=== PATIENT | male | born 1995 | race Caucasian/White ===

== ENCOUNTER 2016-11-23 17:05 | Emergency (ER) | payer OTHER ==
[~2016-11-23] VITALS: Ht 177.8 cm; Wt 226.4 kg
[~2016-11-23 17:05] MED LIST: FLEXERIL10 MG PO; LISINOPRIL10 MG PO; MOTRIN800 MG PO; PHENTERMINE HCL15 MG PO
[2016-11-23 17:50] LABS: EOSINOPHIL (%) 2.5 % (0-5); EOSINOPHIL COUNT 0.3 K/uL (0-0.3); HEMATOCRIT 44.1 % (38.0-50.0); IMMATURE GRANULOCYTE (%) 0.3 % (0.0-0.7); IMMATURE GRANULOCYTE COUNT 0.4 K/uL; LYMPHOCYTE COUNT 2.5 K/uL (1.0-2.8); MCH 27.1 PG (29.0-34.0); MCHC 33.1 G/DL (30.0-36.0); MEAN PLAT.VOLUME 11.1 uM^3 (9.0-12.4); MONOCYTE (%) 6.4 % (3-12); MONOCYTE COUNT 0.8 K/uL (0-0.8); NEUTROPHIL (%) 70.1 % (45-76); NEUTROPHIL COUNT 8.7 K/uL (1.8-6.4); PLATELET COUNT 208 K/uL (156-360); RBC DIS.WIDTH-CV 15.3 % (11.8-14.6); RBC DIS.WIDTH-SD 45.6 % (39-53); RED BLOOD COUNT 5.38 M/uL (4.00-5.50); WHITE BLOOD COUNT 12.4 K/uL (4.1-10.2)
[2016-11-23 17:59] LABS: CHLORIDE 102 mEq/L (99-109); POTASSIUM 5.5 mEq/L (3.7-5.4); SODIUM 140 mEq/L (136-147)
[2016-11-23 18:01] LABS: GLUCOSE 93 mg/dL (70-99)
[2016-11-23 18:02] LABS: ANION GAP 13 MEQ/L (2-14)
[2016-11-23 18:03] LABS: TOTAL BILIRUBIN 0.7 mg/dL (0.0-1.0)
[2016-11-23 18:05] LABS: ALKALINE PHOSPHATASE 60 IU/L (3-129); GFR ESTIMATE (CALCULATED) > 59 mL/min/
[2016-11-23 18:06] LABS: UREA NITROGEN (BUN) 12 mg/dL (9-23)
[2016-11-23 18:08] LABS: LIPASE 17 U/L (1.0-51.0)
[2016-11-23] MEDS ORDERED: ZOFRAN ODT4 MG PO (18:56)
[2016-11-23] MEDS ORDERED: NORCO 7.5/321 TABLET PO (18:56)
[2016-11-23] MEDS ORDERED: FLAGYL500 MG PO (18:56)
[2016-11-23] MEDS ORDERED: CIPRO500 MG PO (18:56)
[2016-11-23 19:57] VITALS: BP 180/130
== END 2016-11-23 20:00 | disposition home or self-care (01) ==
LOC: EME 17:05
PROVIDERS: Physician Assistant
DX: K57.32 Diverticulitis of large intestine without perforation or abscess without bleeding (principal); E66.01 Morbid (severe) obesity due to excess calories; Z68.45 Body mass index [BMI] 70 or greater, adult; R19.7 Diarrhea, unspecified; R16.0 Hepatomegaly, not elsewhere classified; I10 Essential (primary) hypertension
CPT/HCPCS: 74177; 80053; 81003; 83690; 85025; 87493; 87506; 99281; 99285; J1885; J7030

== ENCOUNTER 2017-05-22 14:30 | Inpatient (IN) | payer OTHER ==
[~2017-05-22] VITALS: Ht 177.8 cm; Wt 222.0 kg
[~2017-05-22 14:30] MED LIST changes: +CIPRO500 MG PO; +FLAGYL500 MG PO; +NORCO 7.5/321 TABLET PO; +ZOFRAN ODT4 MG PO
[2017-05-22 16:27] LABS: EOSINOPHIL (%) 0.7 % (0-5); EOSINOPHIL COUNT 0.1 K/uL (0-0.3); IMMATURE GRANULOCYTE COUNT 0.2 K/uL; INSTRUMENT ABS NEUTROPHIL CT 11.6 K/uL; MCH 25.7 PG (29.0-34.0); MCHC 30.2 G/DL (30.0-36.0); MEAN PLAT.VOLUME 10.3 uM^3 (9.0-12.4); MONOCYTE (%) 5.3 % (3-12); MONOCYTE COUNT 0.8 K/uL (0-0.8); NEUTROPHIL (%) 79.2 % (45-76); NEUTROPHIL COUNT 11.6 K/uL (1.8-6.4); NRBC (%) 0.7 /100 WBC (0-0); PLATELET COUNT 201 K/uL (156-360); RBC DIS.WIDTH-CV 17.7 % (11.8-14.6); RBC DIS.WIDTH-SD 50.8 % (39-53); RED BLOOD COUNT 5.65 M/uL (4.00-5.50); WHITE BLOOD COUNT 14.7 K/uL (4.1-10.2)
[2017-05-22 16:41] LABS: CHLORIDE 95 mEq/L (99-109); POTASSIUM 4.2 mEq/L (3.7-5.4)
[2017-05-22 16:42] LABS: SODIUM 143 mEq/L (136-147)
[2017-05-22 16:43] LABS: GLUCOSE 105 mg/dL (70-99)
[2017-05-22 16:45] LABS: ANION GAP 11 MEQ/L (2-14)
[2017-05-22 16:47] LABS: GFR ESTIMATE (CALCULATED) > 59 mL/min/
[2017-05-22 16:48] LABS: UREA NITROGEN (BUN) 13 mg/dL (9-23)
[2017-05-22 16:51] LABS: TROP-I INTERPRETATION NEGATIVE; TROPONIN-I 0.01 ng/mL (0.0-0.30)
[2017-05-22 19:07] LABS: D-DIMER ELISA < 150.00 ng/mLDDU (<230)
[2017-05-22] MEDS ORDERED: LOSARTAN POTAS100 MG PO (20:45)
[2017-05-22] MEDS ORDERED: ATORVASTATIN CA20 MG PO (20:45)
[2017-05-22] MEDS ORDERED: ONE DAILY FOR1 EACH PO (20:46)
[2017-05-22] MEDS ORDERED: ADVIL200 M1 PO (20:47)
[2017-05-22] MEDS ORDERED: VENTOLIN HFA18 GM IH (20:48)
[2017-05-22 21:06] LABS: INTER. NORMALIZED RATIO 1.1; PROTHROMBIN TIME 12.3 SEC (10.2-12.9)
[2017-05-22 21:08] LABS: PTT 35.6 SEC (25-37)
[2017-05-23] VITALS (12 sets, daily range): BP systolic 110–163; BP diastolic 63–111
[2017-05-23 03:59] LABS: POINT-OF-CARE METER ID UU14162513
[2017-05-23 05:32] LABS: HEMATOCRIT 50.7 % (38.0-50.0); MCH 25.8 PG (29.0-34.0); MCHC 29.4 G/DL (30.0-36.0); MCV 87.7 FL (86-99); MEAN PLAT.VOLUME 10.7 uM^3 (9.0-12.4); NRBC (%) 0.6 /100 WBC (0-0); PLATELET COUNT 206 K/uL (156-360); RBC DIS.WIDTH-CV 18.6 % (11.8-14.6); RBC DIS.WIDTH-SD 54.4 % (39-53); RED BLOOD COUNT 5.78 M/uL (4.00-5.50); WHITE BLOOD COUNT 14.5 K/uL (4.1-10.2)
[2017-05-23 05:58] LABS: CHLORIDE 94 MEQ/L (99-109); GFR ESTIMATE (CALCULATED) > 59 mL/min/; GLUCOSE 144 mg/dL (70-99); POTASSIUM 4.6 MEQ/L (3.7-5.4); SODIUM 143 MEQ/L (136-147); UREA NITROGEN (BUN) 14 mg/dL (9-23)
[2017-05-23 06:01] LABS: INTER. NORMALIZED RATIO 1.1; PROTHROMBIN TIME 12.6 SEC (10.2-12.9)
[2017-05-23 06:04] LABS: PTT 37.8 SEC (25-37)
[2017-05-23 06:06] LABS: ALKALINE PHOSPHATASE 55 IU/L (3-129); ANION GAP ND MEQ/L (2-14); SAMPLE HEMOLYSIS CHECK 0; SAMPLE ICTERIC CHECK 0; SAMPLE LIPEMIA CHECK 0; TOTAL BILIRUBIN 1.5 MG/DL (0.0-1.0)
[2017-05-23 06:13] LABS: BASE EXCESS 10.8 mEq/L (-3 to +3); BICARBONATE 44.7 mEq/L (22-26); CARBOXY HGB 3.2 % (0-5); DEVICE VM; FI02 50 %; METHEMOGLOBIN 1.4 % (0-1.5); PCO2 117 mm Hg (35-45); PO2 68 mm Hg (80-100); TOTAL RESP RATE 20 resp/min; pH 7.19 (7.35-7.45)
[2017-05-23 06:14] LABS: SITE LR
[2017-05-23 07:36] LABS: BASE EXCESS 11.6 mEq/L (-3 to +3); BICARBONATE 44.4 mEq/L (22-26); CARBOXY HGB 3.3 % (0-5); METHEMOGLOBIN 1.5 % (0-1.5); PO2 66 mm Hg (80-100)
[2017-05-23 07:37] LABS: PCO2 106 mm Hg (35-45); SITE LR
[2017-05-23 07:38] LABS: COMMENTS - BLOOD GASES A+C+; DEVICE VM; FI02 50 %; O2 FLOW 12 L/MIN; TOTAL RESP RATE 22 resp/min; pH 7.23 (7.35-7.45)
[2017-05-23 08:47] LABS: METH RESISTANT S AUREUS PCR NEGATIVE (NEGATIVE); PROBE CHECK PASS; SPECIMEN PROCESSING CONTROL PASS
[2017-05-23 13:44] LABS: BASE EXCESS 13.9 mEq/L (-3 to +3); BICARBONATE 47.3 mEq/L (22-26); CARBOXY HGB 3.2 % (0-5); COMMENTS - BLOOD GASES A+C+; DEVICE PB 980 NIPPV; FI02 100 %; METHEMOGLOBIN 1.5 % (0-1.5); PCO2 113 mm Hg (35-45); PO2 70 mm Hg (80-100); SITE LR
[2017-05-23 13:45] LABS: MODE SPONT; PEEP 8 CM/H20; PRES. SUPPORT 14 CM/H2O; TOTAL RESP RATE 29 resp/min; pH 7.23 (7.35-7.45)
[2017-05-23 20:56] LABS: BASE EXCESS 14.9 mEq/L (-3 to +3); BICARBONATE 47.3 mEq/L (22-26); CARBOXY HGB 2.9 % (0-5); METHEMOGLOBIN 1.7 % (0-1.5); PCO2 103 mm Hg (35-45); PO2 74 mm Hg (80-100); pH 7.27 (7.35-7.45)
[2017-05-23 20:57] LABS: COMMENTS - BLOOD GASES A+C+; DEVICE 980VENT; FI02 100 %; MODE SPONT; PRES. SUPPORT 14 CM/H2O; SITE RR; TOTAL RESP RATE 21 resp/min
[2017-05-24] VITALS (14 sets, daily range): BP systolic 99–168; BP diastolic 71–107
[2017-05-24 06:00] LABS: BASE EXCESS 22.2 mEq/L (-3 to +3); BICARBONATE 55.8 mEq/L (22-26); CARBOXY HGB 3.8 % (0-5); COMMENTS - BLOOD GASES C+; DEVICE MASK VENT; FI02 80 %; METHEMOGLOBIN 1.2 % (0-1.5); MODE SPONT; PCO2 116 mm Hg (35-45); PO2 70 mm Hg (80-100); SITE RR; pH 7.29 (7.35-7.45)
[2017-05-24 06:01] LABS: PEEP 8 CM/H20; PRES. SUPPORT 14 CM/H2O; TOTAL RESP RATE 24 resp/min
[2017-05-24 13:43] LABS: EOSINOPHIL (%) 0.2 % (0-5); HEMATOCRIT 48.1 % (38.0-50.0); IMMATURE GRANULOCYTE (%) 0.5 % (0.0-0.7); IMMATURE GRANULOCYTE COUNT 0.1 K/uL; INSTRUMENT ABS NEUTROPHIL CT 11.4 K/uL; LYMPHOCYTE COUNT 1.4 K/uL (1.0-2.8); MCH 25.4 PG (29.0-34.0); MCHC 29.5 G/DL (30.0-36.0); MCV 85.9 FL (86-99); MONOCYTE (%) 6.2 % (3-12); MONOCYTE COUNT 0.9 K/uL (0-0.8); NEUTROPHIL COUNT 11.4 K/uL (1.8-6.4); PLATELET COUNT 208 K/uL (156-360); RBC DIS.WIDTH-CV 17.8 % (11.8-14.6); WHITE BLOOD COUNT 13.8 K/uL (4.1-10.2)
[2017-05-24 14:05] LABS: ANION GAP ND MEQ/L (2-14); CHLORIDE 85 MEQ/L (99-109); GFR ESTIMATE (CALCULATED) > 59 mL/min/; GLUCOSE 115 mg/dL (70-99); MAGNESIUM 2.3 mg/dl (1.3-2.7); POTASSIUM 4.2 MEQ/L (3.7-5.4); SAMPLE HEMOLYSIS CHECK 0; SAMPLE ICTERIC CHECK 0; SAMPLE LIPEMIA CHECK 0; SODIUM 139 MEQ/L (136-147); UREA NITROGEN (BUN) 14 mg/dL (9-23)
[2017-05-24 14:09] LABS: CARBON DIOXIDE (BICARBONATE) > 40.0 MEQ/L (20-31)
[2017-05-24 14:54] LABS: BASE EXCESS 25.8 mEq/L (-3 to +3); BICARBONATE 54.6 mEq/L (22-26); CARBOXY HGB 3.1 % (0-5); METHEMOGLOBIN 1.5 % (0-1.5); PCO2 70 mm Hg (35-45); PO2 75 mm Hg (80-100)
[2017-05-24 14:55] LABS: COMMENTS - BLOOD GASES A+C+; DEVICE NIV; FI02 40 %; MODE SPONT; PEEP 8 CM/H20; PRES. SUPPORT 14 CM/H2O; SITE LR; TOTAL RESP RATE 24 resp/min
[2017-05-25] VITALS (13 sets, daily range): BP systolic 107–139; BP diastolic 68–97
[2017-05-25 05:21] LABS: EOSINOPHIL (%) 0 % (0-5); HEMATOCRIT 48.7 % (38.0-50.0); IMMATURE GRANULOCYTE (%) 0.6 % (0.0-0.7); IMMATURE GRANULOCYTE COUNT 0.1 K/uL; INSTRUMENT ABS NEUTROPHIL CT 12.2 K/uL; LYMPHOCYTE COUNT 0.9 K/uL (1.0-2.8); MCHC 30.8 G/DL (30.0-36.0); MCV 84.5 FL (86-99); MEAN PLAT.VOLUME 10.4 uM^3 (9.0-12.4); MONOCYTE (%) 1.9 % (3-12); MONOCYTE COUNT 0.3 K/uL (0-0.8); NEUTROPHIL (%) 90.9 % (45-76); NEUTROPHIL COUNT 12.2 K/uL (1.8-6.4); PLATELET COUNT 231 K/uL (156-360); RBC DIS.WIDTH-CV 17.9 % (11.8-14.6); RBC DIS.WIDTH-SD 50.6 % (39-53); RED BLOOD COUNT 5.76 M/uL (4.00-5.50); WHITE BLOOD COUNT 13.4 K/uL (4.1-10.2)
[2017-05-25 05:40] LABS: CHLORIDE 84 MEQ/L (99-109); GFR ESTIMATE (CALCULATED) > 59 mL/min/; GLUCOSE 161 mg/dL (70-99); POTASSIUM 4.4 MEQ/L (3.7-5.4); SODIUM 139 MEQ/L (136-147); UREA NITROGEN (BUN) 15 mg/dL (9-23)
[2017-05-25 05:49] LABS: MAGNESIUM 2.5 mg/dl (1.3-2.7); SAMPLE HEMOLYSIS CHECK 0; SAMPLE ICTERIC CHECK 0; SAMPLE LIPEMIA CHECK 0
[2017-05-25 05:51] LABS: ANION GAP ND MEQ/L (2-14)
[2017-05-25 06:01] LABS: CARBON DIOXIDE (BICARBONATE) > 40.0 MEQ/L (20-31)
[2017-05-25 08:08] LABS: INTERNAL CONTROL VALID? YES
[2017-05-26] VITALS (8 sets, daily range): BP systolic 90–128; BP diastolic 57–96
[2017-05-26 05:36] LABS: EOSINOPHIL COUNT 0.1 K/uL (0-0.3); HEMATOCRIT 51.5 % (38.0-50.0); IMMATURE GRANULOCYTE (%) 0.4 % (0.0-0.7); IMMATURE GRANULOCYTE COUNT 0.1 K/uL; INSTRUMENT ABS NEUTROPHIL CT 9.8 K/uL; LYMPHOCYTE COUNT 2.4 K/uL (1.0-2.8); MCH 26.1 PG (29.0-34.0); MCHC 31.1 G/DL (30.0-36.0); MEAN PLAT.VOLUME 10.4 uM^3 (9.0-12.4); MONOCYTE (%) 8.1 % (3-12); MONOCYTE COUNT 1.1 K/uL (0-0.8); NEUTROPHIL (%) 72.4 % (45-76); NEUTROPHIL COUNT 9.8 K/uL (1.8-6.4); PLATELET COUNT 234 K/uL (156-360); RBC DIS.WIDTH-CV 18.6 % (11.8-14.6); RBC DIS.WIDTH-SD 51.9 % (39-53); RED BLOOD COUNT 6.13 M/uL (4.00-5.50); WHITE BLOOD COUNT 13.5 K/uL (4.1-10.2)
[2017-05-26 06:21] LABS: ANION GAP ND MEQ/L (2-14); CHLORIDE 82 MEQ/L (99-109); GFR ESTIMATE (CALCULATED) > 59 mL/min/; GLUCOSE 149 mg/dL (70-99); MAGNESIUM 2.4 mg/dl (1.3-2.7); SAMPLE HEMOLYSIS CHECK 0; SAMPLE ICTERIC CHECK 0; SAMPLE LIPEMIA CHECK 0; SODIUM 137 MEQ/L (136-147)
[2017-05-26 06:54] LABS: CARBON DIOXIDE (BICARBONATE) > 40.0 MEQ/L (20-31); POTASSIUM 3.4 MEQ/L (3.7-5.4); UREA NITROGEN (BUN) 29 mg/dL (9-23)
[2017-05-27] VITALS: BP 121/84
[2017-05-27 02:00] VITALS: BP 0/0; BP 104/82
[2017-05-27 04:00] VITALS: BP 104/82
[2017-05-27 06:01] LABS: EOSINOPHIL (%) 0.5 % (0-5); EOSINOPHIL COUNT 0.1 K/uL (0-0.3); HEMATOCRIT 50.1 % (38.0-50.0); IMMATURE GRANULOCYTE (%) 0.4 % (0.0-0.7); IMMATURE GRANULOCYTE COUNT 0.1 K/uL; INSTRUMENT ABS NEUTROPHIL CT 9.4 K/uL; LYMPHOCYTE COUNT 2.6 K/uL (1.0-2.8); MCH 25.9 PG (29.0-34.0); MCHC 30.9 G/DL (30.0-36.0); MCV 83.8 FL (86-99); MEAN PLAT.VOLUME 10.6 uM^3 (9.0-12.4); MONOCYTE (%) 7.2 % (3-12); NEUTROPHIL (%) 71.8 % (45-76); NEUTROPHIL COUNT 9.4 K/uL (1.8-6.4); PLATELET COUNT 249 K/uL (156-360); RBC DIS.WIDTH-CV 18.5 % (11.8-14.6); RBC DIS.WIDTH-SD 52.1 % (39-53); RED BLOOD COUNT 5.98 M/uL (4.00-5.50); WHITE BLOOD COUNT 13.1 K/uL (4.1-10.2)
[2017-05-27 06:47] LABS: ANION GAP 13 MEQ/L (2-14); CHLORIDE 87 MEQ/L (99-109); GFR ESTIMATE (CALCULATED) > 59 mL/min/; GLUCOSE 141 mg/dL (70-99); MAGNESIUM 2.8 mg/dl (1.3-2.7); POTASSIUM 4.2 MEQ/L (3.7-5.4); SAMPLE HEMOLYSIS CHECK 0; SAMPLE ICTERIC CHECK 0; SAMPLE LIPEMIA CHECK 0; SODIUM 139 MEQ/L (136-147); UREA NITROGEN (BUN) 35 mg/dL (9-23)
[2017-05-27 20:00] VITALS: BP 106/78
[2017-05-28] VITALS (7 sets, daily range): BP systolic 102–127; BP diastolic 51–97
[2017-05-28 05:21] LABS: EOSINOPHIL (%) 0.7 % (0-5); EOSINOPHIL COUNT 0.1 K/uL (0-0.3); HEMATOCRIT 53.1 % (38.0-50.0); IMMATURE GRANULOCYTE (%) 0.5 % (0.0-0.7); IMMATURE GRANULOCYTE COUNT 0.1 K/uL; LYMPHOCYTE COUNT 2.5 K/uL (1.0-2.8); MCH 25.9 PG (29.0-34.0); MCHC 30.3 G/DL (30.0-36.0); MCV 85.5 FL (86-99); MONOCYTE (%) 7.3 % (3-12); MONOCYTE COUNT 1.1 K/uL (0-0.8); NEUTROPHIL (%) 74.5 % (45-76); PLATELET COUNT 270 K/uL (156-360); RBC DIS.WIDTH-CV 18.6 % (11.8-14.6); RBC DIS.WIDTH-SD 53.2 % (39-53); RED BLOOD COUNT 6.21 M/uL (4.00-5.50); WHITE BLOOD COUNT 14.7 K/uL (4.1-10.2)
[2017-05-28 05:46] LABS: ANION GAP 12 MEQ/L (2-14); CHLORIDE 88 MEQ/L (99-109); GFR ESTIMATE (CALCULATED) > 59 mL/min/; GLUCOSE 136 mg/dL (70-99); POTASSIUM 4.9 MEQ/L (3.7-5.4); SAMPLE HEMOLYSIS CHECK 0; SAMPLE ICTERIC CHECK 0; SAMPLE LIPEMIA CHECK 0; SODIUM 140 MEQ/L (136-147); UREA NITROGEN (BUN) 32 mg/dL (9-23)
[2017-05-28 11:07] LABS: LACTATE DEHYDROGENASE 296 IU/L (20-246); URIC ACID 10.3 mg/dL (3.1-9.2)
[2017-05-28 11:35] LABS: CREATINE KINASE 59 IU/L (1-294)
[2017-05-28 12:28] LABS: INTACT PARATHYROID HORMONE 112 pg/mL (10-69)
[2017-05-29 05:10] LABS: EOSINOPHIL COUNT 0.1 K/uL (0-0.3); HEMATOCRIT 47.3 % (38.0-50.0); IMMATURE GRANULOCYTE (%) 0.3 % (0.0-0.7); INSTRUMENT ABS NEUTROPHIL CT 9.5 K/uL; MCHC 30.4 G/DL (30.0-36.0); MCV 85.4 FL (86-99); MONOCYTE (%) 6.9 % (3-12); MONOCYTE COUNT 0.9 K/uL (0-0.8); NEUTROPHIL (%) 69.4 % (45-76); NEUTROPHIL COUNT 9.5 K/uL (1.8-6.4); PLATELET COUNT 213 K/uL (156-360); RBC DIS.WIDTH-CV 17.9 % (11.8-14.6); RBC DIS.WIDTH-SD 53.3 % (39-53); RED BLOOD COUNT 5.54 M/uL (4.00-5.50); WHITE BLOOD COUNT 13.7 K/uL (4.1-10.2)
[2017-05-29 05:36] LABS: ANION GAP 10 MEQ/L (2-14); CHLORIDE 91 MEQ/L (99-109); GFR ESTIMATE (CALCULATED) > 59 mL/min/; GLUCOSE 113 mg/dL (70-99); MAGNESIUM 2.9 mg/dl (1.3-2.7); SAMPLE HEMOLYSIS CHECK 0; SAMPLE ICTERIC CHECK 0; SAMPLE LIPEMIA CHECK 0; SODIUM 138 MEQ/L (136-147); UREA NITROGEN (BUN) 25 mg/dL (9-23)
[2017-05-29 05:43] VITALS: BP 129/78
[2017-05-29 08:11] VITALS: BP 136/95
[2017-05-29] MEDS ORDERED: RENVELA800 MG PO (09:33)
[2017-05-29] MEDS ORDERED: LEVOFLOXACIN750 MG PO (09:33)
[2017-05-29] MEDS ORDERED: PREDNISONE10 MG PO (09:33)
[2017-05-29 10:44] VITALS: BP 123/76
[2017-05-29] MEDS ORDERED: VITAMIN D31000 UNI2 PO (16:04)
== END 2017-05-29 16:26 | disposition home health service (06) | DRG 189 ==
LOC: EME 14:30 → EDOF 20:56 → ENRESERV 21:00 → 5WEST 23:33 → 4WEST 05-23 06:27 → ENRESERV 05-23 06:28 → 4WEST 05-23 06:41 → ENRESERV 05-28 08:09 → 4EAST 05-28 09:57
PROVIDERS: Emergency Medicine; Internal Medicine; Internal Medicine Nephrology; Nurse Practitioner Adult Health; Specialist
DX: J96.22 Acute and chronic respiratory failure with hypercapnia (principal); J18.9 Pneumonia, unspecified organism; E87.2 Acidosis; E86.0 Dehydration; E66.2 Morbid (severe) obesity with alveolar hypoventilation; Z99.81 Dependence on supplemental oxygen; J96.21 Acute and chronic respiratory failure with hypoxia; G47.33 Obstructive sleep apnea (adult) (pediatric); Z68.45 Body mass index [BMI] 70 or greater, adult; E11.9 Type 2 diabetes mellitus without complications; E83.41 Hypermagnesemia; E83.39 Other disorders of phosphorus metabolism; E87.6 Hypokalemia; I10 Essential (primary) hypertension; T50.1X5A Adverse effect of loop [high-ceiling] diuretics, initial encounter; E55.9 Vitamin D deficiency, unspecified; E78.5 Hyperlipidemia, unspecified; R00.0 Tachycardia, unspecified; R07.89 Other chest pain
CPT/HCPCS: 36600; 71010; 71020; 78582; 80048; 80053; 82306; 82550; 82570; 82803; 82948; 83615; 83630; 83735; 83970; 84100; 84105; 84133; 84300; 84484; 84550; 85025; 85027; 85379; 85610; 85730; 87449; 87493; 87641; 93005; 93306; 93970; 94002; 94003; 94640; 94640 76; 94660; 94760; 94799; 99202; 99281; 99285; A9539; A9540; G0378; J1644; J1940; J1956; J2920; J2930; J7030; J7070; J7512

== ENCOUNTER → 2017-11-19 | Outpatient (CLI) | payer OTHER ==
[~2017-11-19] MED LIST changes: +ADVIL200 M1 PO; +ATORVASTATIN CA20 MG PO; +LEVOFLOXACIN750 MG PO; +LOSARTAN POTAS100 MG PO; +ONE DAILY FOR1 EACH PO; +PREDNISONE10 MG PO; +RENVELA800 MG PO; +VENTOLIN HFA18 GM IH; +VITAMIN D31000 UNI2 PO
== END | disposition home or self-care (01) ==
LOC: EKG 13:46
DX: I51.7 Cardiomegaly (principal)
CPT/HCPCS: 93306

== ENCOUNTER 2017-12-26 16:24 | Emergency (ER) | payer OTHER ==
[~2017-12-26] VITALS: Ht 177.8 cm; Wt 226.7 kg
[2017-12-26 16:51] LABS: HEMATOCRIT 46.7 % (38.0-50.0); HEMOGLOBIN 14.7 G/DL (12.5-16.6); MCH 26.3 PG (29.0-34.0); MCHC 31.5 G/DL (30.0-36.0); MCV 83.7 FL (86-99); PLATELET COUNT 207 K/uL (156-360); RBC DIS.WIDTH-CV 15.5 % (11.8-14.6); RBC DIS.WIDTH-SD 46.4 % (39-53); RED BLOOD COUNT 5.58 M/uL (4.00-5.50); WHITE BLOOD COUNT 10.7 K/uL (4.1-10.2)
[2017-12-26 17:02] LABS: CHLORIDE 100 mEq/L (99-109); POTASSIUM 4.1 mEq/L (3.7-5.4); SODIUM 142 mEq/L (136-147)
[2017-12-26 17:04] LABS: GLUCOSE 155 mg/dL (70-99)
[2017-12-26 17:08] LABS: CREATININE 0.9 mg/dL (0.6-1.3); GFR ESTIMATE (CALCULATED) > 59 mL/min/ (58.99-99999)
[2017-12-26 17:09] LABS: UREA NITROGEN (BUN) 13 mg/dL (9-23)
[2017-12-26 19:43] VITALS: BP 109/87
== END 2017-12-26 19:44 | disposition home or self-care (01) ==
LOC: EME 16:24
DX: K92.2 Gastrointestinal hemorrhage, unspecified (principal); K57.92 Diverticulitis of intestine, part unspecified, without perforation or abscess without bleeding; E66.01 Morbid (severe) obesity due to excess calories; Z68.45 Body mass index [BMI] 70 or greater, adult; E11.9 Type 2 diabetes mellitus without complications; I10 Essential (primary) hypertension
CPT/HCPCS: 80048; 85027

== ENCOUNTER → 2018-01-12 | Outpatient (CLI) | payer OTHER ==
[~2018-01-12] VITALS: Ht 175.3 cm; Wt 229.5 kg
[~2018-01-12] MED LIST changes: +EXFORGE 5/321 TABLET PO; +SYNJARDY 5-5001 EACH PO
== END | disposition home or self-care (01) ==
LOC: AMB 08:00
PROVIDERS: Internal Medicine Gastroenterology
PROC: 0DB78ZX Excision of Stomach, Pylorus, Via Natural or Artificial Opening Endoscopic, Diagnostic (ICD-10-PCS; principal; 2018-01-12)
DX: Z01.818 Encounter for other preprocedural examination (principal); K21.9 Gastro-esophageal reflux disease without esophagitis; E66.01 Morbid (severe) obesity due to excess calories; E78.5 Hyperlipidemia, unspecified; I10 Essential (primary) hypertension; G47.33 Obstructive sleep apnea (adult) (pediatric); E11.9 Type 2 diabetes mellitus without complications; K76.0 Fatty (change of) liver, not elsewhere classified; Z82.49 Family history of ischemic heart disease and other diseases of the circulatory system; Z83.3 Family history of diabetes mellitus
CPT/HCPCS: 82948; 88305; 88342 TC; J0330

== ENCOUNTER → 2018-03-03 | Outpatient (CLI) | payer OTHER | END | disposition home or self-care (01) | LOC: EKG 13:00 | DX: Z01.810 Encounter for preprocedural cardiovascular examination (principal); I51.7 Cardiomegaly | CPT/HCPCS: 93306 ==